=== PATIENT | male | born 1975 | race Caucasian/White ===

== ENCOUNTER 2016-03-30 12:03 | Emergency (ER) | payer OTHER ==
[~2016-03-30] VITALS: Ht 188 cm; Wt 90.2 kg
[~2016-03-30 12:03] MED LIST: ADVAIR 250/501 DISK IH; ALBUTEROL17 G1 IH; ALBUTEROL17 GM IH; BACLOFEN10 MG PO; CEFEPIME-D1 GM/50 ML IV; CHANTIX1 MG PO; CIPRO500 MG PO; COLACE100 MG PO; COUMADIN2 MG PO; Cipro PO; DIAZEPAM5 MG PO; GABAPENTIN400 MG PO; Habitrol,Nicoderm CQ TD; KEFLEX500 MG PO; LEVAQUIN750 MG PO; LOVENOX100 MG/1 M SC; Levaquin PO; Lioresal PO; METRONIDAZOLE500 MG PO; MS CONTIN,ORAMO30 MG PO; MS CONTIN30 MG PO; MS Contin,Oramorph S PO; Medrol Dosepak PO; NEURONTIN300 MG PO; NEXIUM40 MG PO; NUCYNTA75 MG PO; Nucynta PO; OXYCODONE HCL10 MG PO; OxyCODONE PO; PROVENTIL,2.5 MG/0.5 IH; Proventil,Ventolin H IH; Singulair PO; TRAMADOL HCL50 MG PO; TYLENOL REGULA325 MG PO; VALIUM5 MG PO; VENTOLIN HFA18 GM IH
[2016-03-30] MEDS ORDERED: BACLOFEN10 MG PO (12:47)
[2016-03-30] MEDS ORDERED: PRADAXA110 MG PO (12:49)
[2016-03-30] MEDS ORDERED: VALIUM10 MG PO (12:50)
[2016-03-30] MEDS ORDERED: ADVAIR 250/501 DISK IH (12:51)
[2016-03-30 12:59] LABS: BASOPHIL COUNT 0.1 K/uL (0-0.1); EOSINOPHIL (%) 3.1 % (0-5); EOSINOPHIL COUNT 0.2 K/uL (0-0.3); HEMATOCRIT 40.8 % (38.0-50.0); IMMATURE GRANULOCYTE (%) 0.3 % (0.0-0.7); IMMATURE GRANULOCYTE COUNT 0.2 K/uL; MCH 29.2 PG (29.0-34.0); MCHC 34.6 G/DL (30.0-36.0); MCV 84.5 FL (86-99); MEAN PLAT.VOLUME 11.1 uM^3 (9.0-12.4); MONOCYTE (%) 8.3 % (3-12); MONOCYTE COUNT 0.6 K/uL (0-0.8); NEUTROPHIL (%) 59.5 % (45-76); NEUTROPHIL COUNT 4.3 K/uL (1.8-6.4); PLATELET COUNT 262 K/uL (156-360); RBC DIS.WIDTH-CV 13.4 % (11.8-14.6); RBC DIS.WIDTH-SD 40.8 % (39-53); RED BLOOD COUNT 4.83 M/uL (4.00-5.50); WHITE BLOOD COUNT 7.2 K/uL (4.1-10.2)
[2016-03-30 13:08] LABS: CHLORIDE 105 mEq/L (99-109); SODIUM 139 mEq/L (136-147)
[2016-03-30 13:10] LABS: GLUCOSE 134 mg/dL (70-99)
[2016-03-30 13:11] LABS: ANION GAP 11 MEQ/L (2-14)
[2016-03-30 13:14] LABS: GFR ESTIMATE (CALCULATED) > 59 mL/min/
[2016-03-30 13:15] LABS: UREA NITROGEN (BUN) 9 mg/dL (9-23)
[2016-03-30 14:37] LABS: ADD MIUA? YES; BILIRUBIN NEGATIVE; BLOOD LARGE; GLUCOSE (STRIP) NEGATIVE; KETONES NEGATIVE; LEUKOCYTES LARGE; NITRITE POSITIVE; PH, URINE 7.5 (5-8); PROTEIN (STRIP) NEGATIVE; SPECIFIC GRAVITY 1.016 (1.000-1.030); UROBILINOGEN 0.2 MG/DL (0.2-1.0)
[2016-03-30 14:38] LABS: COLOR LT YELLOW ((YELLOW))
[2016-03-30 15:08] LABS: EPITHELIAL CELLS NONE SEEN; RED BLOOD CELLS 20-30 /HPF (0-5); WHITE BLOOD CELLS 15-20 /HPF (0-5)
[2016-03-30 15:09] LABS: BACTERIA RARE; CASTS NONE SEEN /LPF; CRYSTALS NONE SEEN; MUCUS NONE SEEN; UCUL ADDED? NO
[2016-03-30] MEDS ORDERED: LEVAQUIN750 MG PO (16:16)
[2016-03-30 17:27] VITALS: BP 112/65
== END 2016-03-30 17:28 | disposition home or self-care (01) ==
LOC: EME 12:03
DX: N39.0 Urinary tract infection, site not specified (principal); G82.20 Paraplegia, unspecified; Z87.442 Personal history of urinary calculi
CPT/HCPCS: 80048; 81003; 83605; 85025; 99281; 99284

== ENCOUNTER 2016-04-20 11:08 | Emergency (ER) | payer OTHER ==
[~2016-04-20] VITALS: Ht 188 cm; Wt 93.1 kg
[~2016-04-20 11:08] MED LIST changes: +PRADAXA110 MG PO; +VALIUM10 MG PO
[2016-04-20 12:29] LABS: HEMATOCRIT 41.4 % (38.0-50.0); MCH 29.4 PG (29.0-34.0); MCHC 34.5 G/DL (30.0-36.0); MCV 85.2 FL (86-99); MEAN PLAT.VOLUME 11.3 uM^3 (9.0-12.4); PLATELET COUNT 262 K/uL (156-360); RBC DIS.WIDTH-CV 13.4 % (11.8-14.6); RBC DIS.WIDTH-SD 41.1 % (39-53); RED BLOOD COUNT 4.86 M/uL (4.00-5.50)
[2016-04-20 12:30] LABS: WHITE BLOOD COUNT 9.8 K/uL (4.1-10.2)
[2016-04-20 12:33] LABS: CHLORIDE 103 mEq/L (99-109); SODIUM 138 mEq/L (136-147)
[2016-04-20 12:35] LABS: GLUCOSE 98 mg/dL (70-99)
[2016-04-20 12:37] LABS: ANION GAP 10 MEQ/L (2-14); TOTAL BILIRUBIN 0.5 mg/dL (0.0-1.0)
[2016-04-20 12:39] LABS: ALKALINE PHOSPHATASE 67 IU/L (3-129); GFR ESTIMATE (CALCULATED) > 59 mL/min/
[2016-04-20 12:40] LABS: UREA NITROGEN (BUN) 8 mg/dL (9-23)
[2016-04-20 14:39] LABS: ADD MIUA? YES; BILIRUBIN NEGATIVE; BLOOD SMALL; COLOR YELLOW ((YELLOW)); GLUCOSE (STRIP) NEGATIVE; KETONES NEGATIVE; LEUKOCYTES LARGE; NITRITE POSITIVE; PROTEIN (STRIP) NEGATIVE; SPECIFIC GRAVITY 1.008 (1.000-1.030); UROBILINOGEN 0.2 MG/DL (0.2-1.0)
[2016-04-20 15:21] LABS: RED BLOOD CELLS 0-5 /HPF (0-5)
[2016-04-20 15:22] LABS: BACTERIA 2+ /HPF; CASTS NONE SEEN /LPF; CRYSTALS NONE SEEN; EPITHELIAL CELLS RARE /HPF; MUCUS NONE SEEN /LPF; UCUL ADDED? YES; WHITE BLOOD CELLS 20-30 /HPF (0-5)
[2016-04-20] MEDS ORDERED: CIPRO500 MG PO (15:28)
[2016-04-20] MEDS ORDERED: BACTRIM,SEPT1 TABLET PO (15:44)
[2016-04-20 15:53] VITALS: BP 115/76
== END 2016-04-20 15:53 | disposition home or self-care (01) ==
LOC: EME 11:08
DX: N39.0 Urinary tract infection, site not specified (principal); K59.00 Constipation, unspecified; Z87.891 Personal history of nicotine dependence; Z91.048 Other nonmedicinal substance allergy status; G82.50 Quadriplegia, unspecified; J45.909 Unspecified asthma, uncomplicated; J44.9 Chronic obstructive pulmonary disease, unspecified; Z87.442 Personal history of urinary calculi; Z87.440 Personal history of urinary (tract) infections; Z99.3 Dependence on wheelchair
CPT/HCPCS: 74000; 80053; 81003; 85027; 87086; 99281; 99284

== ENCOUNTER 2016-04-25 12:32 | Emergency (ER) | payer OTHER ==
[~2016-04-25] VITALS: Ht 188 cm; Wt 93.2 kg
[~2016-04-25 12:32] MED LIST changes: +BACTRIM,SEPT1 TABLET PO
[2016-04-25 15:16] LABS: BASOPHIL COUNT 0.1 K/uL (0-0.1); EOSINOPHIL (%) 3.5 % (0-5); EOSINOPHIL COUNT 0.3 K/uL (0-0.3); MCH 28.5 PG (29.0-34.0); MCHC 33.2 G/DL (30.0-36.0); MEAN PLAT.VOLUME 10.9 uM^3 (9.0-12.4); MONOCYTE (%) 11.9 % (3-12); MONOCYTE COUNT 0.9 K/uL (0-0.8); NEUTROPHIL (%) 55.9 % (45-76); NEUTROPHIL COUNT 4.1 K/uL (1.8-6.4); PLATELET COUNT 261 K/uL (156-360); RBC DIS.WIDTH-CV 13.2 % (11.8-14.6); RBC DIS.WIDTH-SD 41.3 % (39-53); RED BLOOD COUNT 4.77 M/uL (4.00-5.50); WHITE BLOOD COUNT 7.2 K/uL (4.1-10.2)
[2016-04-25 15:25] LABS: CHLORIDE 102 mEq/L (99-109); SODIUM 139 mEq/L (136-147)
[2016-04-25 15:27] LABS: GLUCOSE 99 mg/dL (70-99)
[2016-04-25 15:28] LABS: ANION GAP 9 MEQ/L (2-14)
[2016-04-25 15:30] LABS: GFR ESTIMATE (CALCULATED) > 59 mL/min/
[2016-04-25 15:31] LABS: UREA NITROGEN (BUN) 6 mg/dL (9-23)
[2016-04-25 20:46] LABS: ADD MIUA? YES; BILIRUBIN NEGATIVE; BLOOD SMALL; COLOR YELLOW ((YELLOW)); GLUCOSE (STRIP) NEGATIVE; KETONES NEGATIVE; LEUKOCYTES LARGE; NITRITE POSITIVE; PH, URINE 6.5 (5-8); PROTEIN (STRIP) 100; SPECIFIC GRAVITY 1.021 (1.000-1.030)
[2016-04-25 21:10] LABS: BACTERIA 3+ /HPF; EPITHELIAL CELLS 1+ /HPF; MUCUS TRACE /LPF; RED BLOOD CELLS RARE /HPF (0-5); UCUL ADDED? YES
[2016-04-25 21:12] LABS: WHITE BLOOD CELLS 20-30 /HPF (0-5)
[2016-04-25] MEDS ORDERED: MIRALAX17 GM PO (22:36)
[2016-04-25 23:17] VITALS: BP 106/65
== END 2016-04-25 23:05 | disposition home or self-care (01) ==
LOC: EME 12:32
DX: K59.00 Constipation, unspecified (principal); L89.319 Pressure ulcer of right buttock, unspecified stage; R10.9 Unspecified abdominal pain; E87.2 Acidosis; G82.50 Quadriplegia, unspecified
CPT/HCPCS: 74177; 80048; 81003; 83605; 85025; 87040; 87077; 87086; 87086 GA; 87186; 99281; 99285; J2405; J7120

== ENCOUNTER 2016-06-25 16:22 | Emergency (ER) | payer OTHER ==
[~2016-06-25] VITALS: Ht 188 cm; Wt 93.2 kg
[~2016-06-25 16:22] MED LIST changes: +ELIQUIS5 MG PO; +MIRALAX17 GM PO
[2016-06-25 18:30] VITALS: BP 120/84
[2016-06-26] MEDS ORDERED: REGLAN10 MG PO (10:51)
[2016-06-26] MEDS ORDERED: FIORICET 50-301 EACH PO (10:51)
== END 2016-06-25 18:42 | disposition home or self-care (01) ==
LOC: EME 16:22
DX: N39.0 Urinary tract infection, site not specified (principal); G82.50 Quadriplegia, unspecified; Z87.440 Personal history of urinary (tract) infections; J45.909 Unspecified asthma, uncomplicated; G89.29 Other chronic pain; J44.9 Chronic obstructive pulmonary disease, unspecified; Z87.442 Personal history of urinary calculi; Z86.14 Personal history of Methicillin resistant Staphylococcus aureus infection; Z87.891 Personal history of nicotine dependence
CPT/HCPCS: 87086; 99281; 99284

== ENCOUNTER 2016-06-26 09:03 | Emergency (ER) | payer OTHER ==
[~2016-06-26] VITALS: Ht 188 cm; Wt 93.0 kg
[2016-06-26] MEDS ORDERED: FIORICET 50-301 EACH PO (10:51)
[2016-06-26] MEDS ORDERED: REGLAN10 MG PO (10:51)
[2016-06-26 13:35] VITALS: BP 100/75
== END 2016-06-26 13:50 | disposition home or self-care (01) ==
LOC: EME 09:03
DX: R51 Headache (principal); G82.50 Quadriplegia, unspecified; J45.909 Unspecified asthma, uncomplicated; G89.29 Other chronic pain; J44.9 Chronic obstructive pulmonary disease, unspecified; Z87.442 Personal history of urinary calculi; Z87.440 Personal history of urinary (tract) infections; Z86.14 Personal history of Methicillin resistant Staphylococcus aureus infection; Z87.891 Personal history of nicotine dependence
CPT/HCPCS: 99281; 99285; J1170; J3010; J3030

== ENCOUNTER 2016-06-30 07:00 | Emergency (ER) | payer OTHER ==
[~2016-06-30] VITALS: Ht 188 cm; Wt 120.0 kg
[~2016-06-30 07:00] MED LIST changes: +FIORICET 50-301 EACH PO; +REGLAN10 MG PO
[2016-06-30] MEDS ORDERED: VALIUM5 MG PO (10:38)
[2016-06-30 11:32] VITALS: BP 142/57
== END 2016-06-30 11:05 | disposition home or self-care (01) ==
LOC: EME 07:00
DX: G44.209 Tension-type headache, unspecified, not intractable (principal); R05 Cough; R09.3 Abnormal sputum; G82.50 Quadriplegia, unspecified; Z96.0 Presence of urogenital implants; G89.29 Other chronic pain; J44.9 Chronic obstructive pulmonary disease, unspecified; J45.909 Unspecified asthma, uncomplicated; Z79.01 Long term (current) use of anticoagulants; Z79.891 Long term (current) use of opiate analgesic; Z86.14 Personal history of Methicillin resistant Staphylococcus aureus infection; Z87.891 Personal history of nicotine dependence
CPT/HCPCS: 99281; 99284; J1100; J1885; J3360; J7030

== ENCOUNTER 2016-07-02 15:03 | Emergency (ER) | payer OTHER ==
[~2016-07-02] VITALS: Ht 188 cm; Wt 93.1 kg
[2016-07-02 16:57] LABS: BASOPHIL COUNT 0.1 K/uL (0-0.1); EOSINOPHIL (%) 2.5 % (0-5); EOSINOPHIL COUNT 0.2 K/uL (0-0.3); HEMATOCRIT 41.4 % (38.0-50.0); IMMATURE GRANULOCYTE (%) 0.3 % (0.0-0.7); INSTRUMENT ABS NEUTROPHIL CT 4.2 K/uL; LYMPHOCYTE COUNT 1.9 K/uL (1.0-2.8); MCH 27.1 PG (29.0-34.0); MCHC 31.6 G/DL (30.0-36.0); MCV 85.7 FL (86-99); MEAN PLAT.VOLUME 11.2 uM^3 (9.0-12.4); MONOCYTE (%) 7.3 % (3-12); MONOCYTE COUNT 0.5 K/uL (0-0.8); NEUTROPHIL COUNT 4.2 K/uL (1.8-6.4); PLATELET COUNT 230 K/uL (156-360); RBC DIS.WIDTH-CV 15.1 % (11.8-14.6); RBC DIS.WIDTH-SD 47.3 % (39-53); RED BLOOD COUNT 4.83 M/uL (4.00-5.50); WHITE BLOOD COUNT 6.8 K/uL (4.1-10.2)
[2016-07-02 17:10] LABS: CHLORIDE 106 mEq/L (99-109); SODIUM 140 mEq/L (136-147)
[2016-07-02 17:12] LABS: GLUCOSE 130 mg/dL (70-99)
[2016-07-02 17:13] LABS: ANION GAP 11 MEQ/L (2-14)
[2016-07-02 17:15] LABS: GFR ESTIMATE (CALCULATED) > 59 mL/min/
[2016-07-02 17:16] LABS: UREA NITROGEN (BUN) 8 mg/dL (9-23)
[2016-07-02 18:38] VITALS: BP 112/78
[2016-07-03] MEDS ORDERED: BENADRYL25 MG PO (15:33)
[2016-07-03] MEDS ORDERED: REGLAN10 MG PO (15:33)
[2016-07-03] MEDS ORDERED: FIORICET,ESG1 TABLET PO (16:10)
== END 2016-07-02 18:40 | disposition home or self-care (01) ==
LOC: EME 15:03
PROVIDERS: Emergency Medicine
DX: M62.838 Other muscle spasm (principal); G44.209 Tension-type headache, unspecified, not intractable; G82.50 Quadriplegia, unspecified; G89.29 Other chronic pain; Z87.442 Personal history of urinary calculi; Z87.891 Personal history of nicotine dependence
CPT/HCPCS: 70450; 80048; 85025; 99281; 99284; J1200; J2270

== ENCOUNTER 2016-07-03 11:25 | Emergency (ER) | payer OTHER ==
[~2016-07-03] VITALS: Ht 188 cm; Wt 93.2 kg
[2016-07-03] MEDS ORDERED: REGLAN10 MG PO (15:33)
[2016-07-03] MEDS ORDERED: BENADRYL25 MG PO (15:33)
[2016-07-03] MEDS ORDERED: FIORICET,ESG1 TABLET PO (16:10)
[2016-07-03 16:25] VITALS: BP 131/86
== END 2016-07-03 16:27 | disposition home or self-care (01) ==
LOC: EME 11:25
PROC: 0T2BX0Z Change Drainage Device in Bladder, External Approach (ICD-10-PCS; principal; 2016-07-03)
DX: G43.909 Migraine, unspecified, not intractable, without status migrainosus (principal); R11.0 Nausea; H53.2 Diplopia; M62.838 Other muscle spasm; H93.19 Tinnitus, unspecified ear; R23.2 Flushing; T65.811A Toxic effect of latex, accidental (unintentional), initial encounter; J45.909 Unspecified asthma, uncomplicated; J44.9 Chronic obstructive pulmonary disease, unspecified; G89.29 Other chronic pain; F32.9 Major depressive disorder, single episode, unspecified; G82.50 Quadriplegia, unspecified; F41.9 Anxiety disorder, unspecified; Z86.14 Personal history of Methicillin resistant Staphylococcus aureus infection; Z87.440 Personal history of urinary (tract) infections; Z87.891 Personal history of nicotine dependence
CPT/HCPCS: 99281; 99284; J1885

== ENCOUNTER → 2016-08-17 | Outpatient (CLI) | payer OTHER ==
[~2016-08-17] MED LIST changes: +BENADRYL25 MG PO; +FIORICET,ESG1 TABLET PO; +HIPREX1 GM PO; +MIRALAX255 GM PO; +OXYBUTYNIN CHLOR5 MG PO; +POTASSIUM CHLO20 ME1 PO
== END | disposition home or self-care (01) ==
LOC: PICC 12:24
DX: L89.314 Pressure ulcer of right buttock, stage 4 (principal)
CPT/HCPCS: 76937

== ENCOUNTER 2016-09-19 10:01 | Day surgery (SDC) | payer OTHER ==
[~2016-09-19] VITALS: Ht 189.2 cm; Wt 93.0 kg
[~2016-09-19 10:01] MED LIST changes: +AMPICILLIN-SULBA3 GM IV; +BOOST237 ML PO
[2016-09-19 11:02] VITALS: BP 112/62
[2016-09-19 12:17] LABS: METH RESISTANT S AUREUS PCR NEGATIVE (NEGATIVE); PROBE CHECK PASS; SPECIMEN PROCESSING CONTROL PASS
[2016-09-19 13:40] VITALS: BP 109/74
[2016-09-19 14:19] VITALS: BP 119/75
== END 2016-09-19 14:35 | disposition home or self-care (01) ==
LOC: SDC 10:01
PROVIDERS: Surgery Plastic and Reconstructive Surgery
PROC: 0QB20ZZ Excision of Right Pelvic Bone, Open Approach (ICD-10-PCS; principal; 2016-09-19)
DX: L89.214 Pressure ulcer of right hip, stage 4 (principal); J45.909 Unspecified asthma, uncomplicated; K21.9 Gastro-esophageal reflux disease without esophagitis; G82.50 Quadriplegia, unspecified; F41.9 Anxiety disorder, unspecified; Z86.718 Personal history of other venous thrombosis and embolism; Z87.891 Personal history of nicotine dependence; Z82.49 Family history of ischemic heart disease and other diseases of the circulatory system
CPT/HCPCS: 71010; 87070; 87075; 87205; 87641; 88305; J0690; J1100; J2250; J2405; J2710; J3010

== ENCOUNTER → 2016-09-24 | Emergency (ER) | payer OTHER ==
[~2016-09-24] VITALS: Ht 188 cm; Wt 94.5 kg
[2016-09-24 12:45] VITALS: BP 128/89
== END | disposition left against medical advice (07) ==
LOC: EME 11:02
DX: Z48.00 Encounter for change or removal of nonsurgical wound dressing (principal); L89.319 Pressure ulcer of right buttock, unspecified stage; Z53.21 Procedure and treatment not carried out due to patient leaving prior to being seen by health care provider
CPT/HCPCS: 99281; 99283

== ENCOUNTER → 2017-08-07 | Outpatient (CLI) | payer OTHER ==
[~2017-08-07] MED LIST changes: +AVELOX400 MG PO
== END | disposition home or self-care (01) ==
LOC: PICC 14:30
DX: M86.9 Osteomyelitis, unspecified (principal)
CPT/HCPCS: 76937

== ENCOUNTER 2017-09-19 08:48 | Day surgery (SDC) | payer OTHER ==
[~2017-09-19] VITALS: Ht 189.2 cm; Wt 88.0 kg
[~2017-09-19 08:48] MED LIST changes: +NEURONTIN400 MG PO; +[UNRECOGNIZED DRUG - OTHER]
[2017-09-19 09:47] VITALS: BP 106/57
[2017-09-19 13:40] VITALS: BP 102/69
[2017-09-19 14:25] VITALS: BP 116/60
== END 2017-09-19 14:30 | disposition home or self-care (01) ==
LOC: SDC 08:48
PROC: 0QB20ZZ Excision of Right Pelvic Bone, Open Approach (ICD-10-PCS; principal; 2017-09-19)
DX: L89.314 Pressure ulcer of right buttock, stage 4 (principal); G82.50 Quadriplegia, unspecified; M86.28 Subacute osteomyelitis, other site; J44.9 Chronic obstructive pulmonary disease, unspecified; Z91.040 Latex allergy status; Z87.891 Personal history of nicotine dependence; Z86.718 Personal history of other venous thrombosis and embolism; Z79.01 Long term (current) use of anticoagulants
CPT/HCPCS: 87070; 87075; 87205; 87641; 88304; 88311; J1100; J2250; J2405; J2710; J3010; J7643

== ENCOUNTER → 2017-10-24 | Outpatient (CLI) | payer OTHER | END | disposition home or self-care (01) | LOC: PICC 11:00 | DX: M86.9 Osteomyelitis, unspecified (principal) | CPT/HCPCS: 76937; C1751; C1894 ==